=== PATIENT | female | born 1950 | race Caucasian/White ===

== ENCOUNTER 2016-08-22 05:44 | Inpatient (IN) | payer OTHER ==
--- NOTE | 2016-08-20 09:19 | GHP ---
[f rep st] PREOP HISTORY AND PHYSICAL DATE OF ADMISSION: 08/22/2016 PROBLEM: Severe right hip degenerative arthritis. HISTORY OF PRESENT ILLNESS: The patient is a 65-year-old female, who will be admitted for a right to zulma hip arthroplasty with Dr. Gonzales at the [facility] on August 22, 2016. The mirian ent has had progressive and worsening debilitating pain of the right hip and groin, which is worse wi th activity. She has had to stop playing tennis secondary to her hip pain. Her activities have beco me severely limited. She has pain both during the day and nighttime. She has tried and failed anti- inflammatories and other pain medications without relief. She has difficulty putting on her shoes an d socks on the right side. Because of her progressive pain and advanced arthritis, she has elected t o proceed with a right total hip arthroplasty. PAST MEDICAL HISTORY: Pertinent for bilateral knee patellofemoral arthritis, generalized body aches. No previous history of PE, DVT, MT, CAD, or MRSA infections. CURRENT MEDICATIONS: Amitriptyline 100 mg daily, Aleve, tumeric, omega-3, Co Q10 enzyme, D3 and calc ium. MEDICATION ALLERGIES: She has a drug allergy to sulfa with an unknown reaction. No metal allergies SOCIAL HISTORY: The patient is . She is retired. She is a nonsmoker. Moderate alcohol inta ke. Her activities include golf, tennis, Pilates, cycling and hiking. FAMILY HISTORY: Pertinent for cancer and dementia. PAST SURGICAL HISTORY: Spinal fusion in 1989. PHYSICAL EXAMINATION: VITALS: Height 5 feet 5 inches tall, weight 142 pounds. BMI 23.6. GENERAL: She is an otherwise healthy-appearing 65-year-old female. HEENT: Head is normocephalic, atraumatic . Eyes are PERRLA. Conjunctivae and sclerae are clear. Mouth, she has good oral hygiene without an y loose teeth. LUNGS: Clear. HEART: Regular rate and rhythm. No murmurs, gallops, or rubs. EXTR EMITIES: Pertinent findings are limited to the patient's right hip. She has full hip extension, 90 degrees of hip flexion with pain beyond 90 degrees. She has about 10 degrees of internal rotation wi th pain, 40 degrees of external rotation without pain and 50 degrees of abduction. DIAGNOSTIC IMAGING: Recent x-rays taken on the patient's right hip shows advanced, near hsih-di-kwht degenerative arthritis of the right hip. She has increased subchondral sclerosis, peripheral osteop hyte formation, and a few subcortical cysts of the femoral head. She did not have any significant de generative changes of the left hip. IMPRESSION: On admission: 1. Severe advanced right hip degenerative arthritis. 2. Bilateral knee patellofemoral arthritis. PLAN: The plan will be for the patient to undergo a right total hip arthroplasty with Dr. Gonzales at the [facility]. The surgery has been described to the patient including the risks, b enefits and expectations. She understands the risk of infection, sciatic nerve injury, dislocation a nd leg length inequality. She understands the importance of postoperative physical therapy. All her questions have been answered and she consents to surgery here in the office. /[id number]/MODL
[2016-08-22] MEDS ORDERED: ACETAMINOPHEN 325 MG TAB ONE (06:04)
[2016-08-22] MEDS ORDERED: FAMOTIDINE 20 MG TAB ONE (06:05)
[2016-08-22] MEDS ORDERED: CEFAZOLIN 2 GM/DEXTROSE/100 ML BAG IV ONE (06:06)
[2016-08-22] MEDS ORDERED: DEXAMETHASONE 4 MG/ML VIAL ONE ×2 (06:11→08:00)
[2016-08-22] MEDS ORDERED: LIDOCAINE 1% 5 ML SDV ID PRN (06:12)
[2016-08-22] MEDS ORDERED: LR 1,000 ML IV ONE (06:12)
[2016-08-22] MEDS ORDERED: TRANEXAMIC ACID 1,400 MG in NS 100 ML IV ONE (06:30)
[2016-08-22] MEDS ORDERED: ROPI/epiNEPH/KETOROLAC JOINT COCKTAIL IU ONE (06:30)
[2016-08-22] MEDS ORDERED: CEFAZOLIN 2 GM/DEXTR 100 ML IV ONE (06:30)
[2016-08-22] MEDS ORDERED: DEXAMETHASONE 4 MG/ML VIAL IVP ONE (06:30)
[2016-08-22] MEDS ORDERED: ACETAMINOPHEN 325 MG TAB PO ONE (06:30)
[2016-08-22] MEDS ORDERED: FAMOTIDINE 20 MG TAB PO ONE (06:30)
[2016-08-22] MEDS ORDERED: POVIDONE-IODINE 20 ML in SODIUM CL IRRIG SOLUTION 500 ML IRR ONE (06:30)
[2016-08-22] MEDS ORDERED: CHLORHEXIDINE GLUC HIBICLENS 118 ML BTL TP ONE (06:30)
[2016-08-22] MEDS ORDERED: MIDAZOLAM 2 MG/2 ML VIAL ONE (07:00)
[2016-08-22] MEDS ORDERED: SKIN ADHESIVE (DERMABOND) 1 EACH TP ONE (07:09)
[2016-08-22] MEDS ORDERED: ceFAZolin 1 GM/5 ML SYR ONE (07:11)
[2016-08-22] MEDS ORDERED: fentaNYL 100 MCG/2 ML INJ ONE ×4 (07:12→09:19)
[2016-08-22] MEDS ORDERED: PROPOFOL/EMULSION 500 MG/50 ML BOTTLE IV ONE (07:13)
[2016-08-22] MEDS ORDERED: PROPOFOL 200 MG/20 ML VIAL ONE ×2 (07:56→07:59)
[2016-08-22] MEDS ORDERED: GLYCOPYRROLATE 0.2 MG/1 ML VIAL ONE (08:00)
[2016-08-22] MEDS ORDERED: ROCURONIUM 50 MG/5 ML VIAL ONE (08:00)
[2016-08-22] MEDS ORDERED: ONDANSETRON 4 MG/2 ML VIAL ONE (08:02)
[2016-08-22] MEDS ORDERED: SUGAMMADEX SODIUM 200 MG/2 ML VIAL IVP ONE (08:48)
--- NOTE | 2016-08-22 09:00 | POSTOPPROG ---
Post Op Note Date of Operation: 08/22/16 Surgeon: Emmanuel Gonzales Sound Engineer: Carlo/Julio Anesthesiologist: Dago Anesthesia: GET(General Endotracheal) Post-op Diagnosis: right hip arthritis Procedure: right AKILAH Inf/Abcess present in the surg proc area at time of surgery?: No EBL: [id number]
[2016-08-22] MEDS ORDERED: NS 500 ML IV PRN (09:06)
[2016-08-22] MEDS ORDERED: METOCLOPRAMIDE 10 MG/2 ML VIAL IVP PRN (09:06)
[2016-08-22] MEDS ORDERED: oxyCODONE IR 5 MG TAB PO PRN (09:06)
[2016-08-22] MEDS ORDERED: PROMETHAZINE HCL 25 MG SUPPR PR PRN (09:06)
[2016-08-22] MEDS ORDERED: CYCLOBENZAPRINE 10 MG TAB PO PRN (09:06)
[2016-08-22] MEDS ORDERED: ONDANSETRON 4 MG/2 ML VIAL IVP PRN (09:06)
[2016-08-22] MEDS ORDERED: KETOROLAC 30 MG/1 ML SDV IVP PRN (09:06)
[2016-08-22] MEDS ORDERED: MAGNESIUM HYDROXIDE 30 ML UDCUP PO PRN (09:06)
[2016-08-22] MEDS ORDERED: PROMETHAZINE HCL 25 MG/ML VIAL IVP PRN (09:06)
[2016-08-22] MEDS ORDERED: ONDANSETRON DISINTEGRATING 4 MG TAB PO PRN (09:06)
[2016-08-22] MEDS ORDERED: BISACODYL 10 MG SUPP PR PRN (09:06)
[2016-08-22] MEDS ORDERED: TEMAZEPAM 15 MG CAP PO PRN (09:06)
[2016-08-22] MEDS ORDERED: DIPHENOXYLATE/ATROPINE LOMOTIL 1 TAB PO PRN (09:06)
[2016-08-22] MEDS ORDERED: diphenhydrAMINE 25 MG CAP PO PRN (09:06)
[2016-08-22] MEDS ORDERED: POLYETHYLENE GLYCOL 3350 17 GM PKT PO PRN (09:06)
[2016-08-22] MEDS ORDERED: PHARMACY PAIN CONSULT 1 EA MISC PRN (09:06)
[2016-08-22] MEDS ORDERED: LACTULOSE 20 GM/30 ML UDCUP PO PRN (09:06)
[2016-08-22] MEDS ORDERED: HYDROmorphONE/DILAUDID 1 MG/ML SYR ONE (09:19)
--- NOTE | 2016-08-22 09:34 | DX ---
Portable AP Pelvis August 22, 2016 9:25 a.m. Clinical History: 65-year-old female in the PACU after a right hip arthroplasty. Comparison Study: None. Findings: The patient has undergone a right hip arthroplasty, with anatomic alignment of the femoral and acetabular components. The femoral intramedullary cyndi is well-centered. There is normally expecte d postoperative air in the soft tissues. The more cephalad aspects of the pelvis have been excluded. Impression: Status post right hip arthroplasty, with anatomic alignment.
[2016-08-22] MEDS: LR 1,000 ML IV SCH ×2 (10:47→20:52)
--- NOTE | 2016-08-22 11:27 | GOP ---
[f rep st] OPERATIVE REPORT DATE OF OPERATION: 08/22/2016 SURGEON: Emmanuel Gonzales MD MARINE MACHINIST: 1. Stephen Matos PAC. 2. Alfredo Kim TEACHER AIDE CLERICAL. ANESTHESIA: General. ANESTHESIOLOGIST: Maren Loza MD. PREOPERATIVE DIAGNOSIS: 1. Right hip arthritis. 2. Bilateral knee degenerative arthritis. POSTOPERATIVE DIAGNOSIS: PROCEDURE PERFORMED: 1. Right total hip arthroplasty, ceramic on highly crosslink polyethylene. 2. Bilateral knee Supartz injections. FINDINGS: DESCRIPTION OF PROCEDURE: The patient was given 2 g of preoperative IV Ancef within 60 minutes of scruggs rgery. She also received IV tranexamic acid at a dose of 20 mg/kg. She was placed on the operating room table and Dr. Loza attempted a spinal anesthetic. This was unsuccessful. She was then placed supine and given general endotracheal anesthesia. When she was anesthetized, I gave her bilateral k nee Supartz injections after sterilely prepping her knees with ChloraPrep. A Valentin catheter was not used. She wore a MAICO stocking and SCD on the nonoperative leg. She was rolled to the left lateral d ecubitus position. The position was secured with the pegboard table attachment. An axillary roll wa s used and all pressure points were carefully padded. I was careful to lock her pelvis in a rigid ve rtical position. Her perineum was isolated with plastic adhesive drapes. Her right hip and right lo wer extremity were prepped with ChloraPrep. They were draped free using sterile sheets, stockinette, and Ioban plastic drapes. The [employer] time-out was performed to verify the correct surgical side and the maggy [facility] patient identity. The [place] time-out was also performed. I made a 5-inch straight oblique posterolateral hip skin incision. Subcutaneous tissues were sharply divided and hemostasis was obtained using electrocautery. Her fascia ant was identified and split along the axis of its fibers. I curved posteriorly and proximally and split the fascia of the gluteu s maggy and bluntly split the muscle fibers in line with their orientation. The Charnley self-vilma ining retractor was inserted. Her sciatic nerve was located, partially exposed and protected through out the procedure. The external rotators and the posterior hip capsule were divided as separate laye rs at the base of the femoral neck, tagged and reflected posteriorly. A smooth eighth-inch Steinmann pin was inserted vertically into the ilium superior to the acetabulum. An eighth-inch drill bit was inserted vertically into the greater trochanter and parallel to the 1st pin. The distance between t he 2 was measured for leg length reference. Her femoral head was dislocated posteriorly. She had a lot of hypertrophic synovium in the joint and an excessive amount of synovial fluid. Severe degenera tive changes were present on the femoral head. Her femoral neck was osteotomized at the appropriate level and inclination. I was careful to preserve all the posterior capsule and most of the anterior capsule. The remnant of her damaged labrum was excised. I prepared the femur first. This allowed me to internal security manager the amount of natural femoral neck anteversion. This, in turn, allowed me to later determine the correct amount of cup anteversion. She had approx imately 12-15 degrees of natural femoral neck anteversion. The canal was opened laterally with a box chisel. I reamed and broached sequentially up to a size 9. I used a size 9 broach as a trial stem. I was careful to lateralize adequately. Appropriate retractors were inserted to expose her acetabulum. The acetabulum was reamed sequentiall y to 51 mm. I selected a 52 mm Davis Titanium solid-backed hemispherical shell. This was tapped s ecurely into place in the proper degree of inclination and anteversion. I used the transverse acetab ular ligament and other acetabular bony landmarks to help me properly orient the cup. I inserted a s crew-in metal dome hole plug. She had a small posterior-inferior osteophyte which I removed with a r ongeur. I performed a series of trial reductions to determine length and stability. I concluded that the siz e 9 stem with a 0 mm neck length, a 32 mm head and a 10-degree lipped liner gave me the proper combin ation of appropriate length and good anterior and posterior stability. The 10-degree lip Davis highly cross-linked X3 polyethylene liner was inserted and tapped securely into place. I dialed the 10-degree overhang so that it was directly posterior. I chose the Davis Secur-Fit Max stem and a size 9 with standard offset. This was inserted to press-fit and was very ti ght. I did 1 final trial reduction and confirmed that the 0 neck length with a 32 mm head was the pr oper combination. She was a couple of millimeters short preoperatively, and I was intentionally mireya thening her a small amount. I selected the Charo Biolox Delta ceramic head with an outside diamete r of 32 mm and a neck length of 0 mm. The head was tapped securely onto the clean trunnion. The coral tabulum was irrigated and cleaned and the hip was reduced 1 final time. She had excellent anterior a nd posterior stability and appropriate lengthening. 40 mL of the joint anesthetic cocktail were injected into the capsule, the deep musculature and the s ubcutaneous tissues along the skin edges. The joint was thoroughly irrigated 1 final time with a dil [place] Betadine solution. Her sciatic nerve was reinspected and looked unharmed. The external rotators and the posterior hip capsule were repaired in separate layers with #2 FiberWire sutures through dri ll holes in the greater trochanter. This provided a strong posterior capsular and external rotator r epair. The fascia ant was closed first with 2, #2 brvjeu-zr-nhwst interrupted FiberWire sutures, fo llowed by a running #2 barbed Ethicon Stratafix PDO suture. Subcutaneous tissues were closed with a running 0 barbed Ethicon Stratafix Monoderm suture. The skin was closed with a running 3-0 barbed Et hicon Stratafix Monoderm subcuticular suture. The skin edges were reapproximated and sealed with Jamari mabond glue. The wound was covered with a strip of Telfa, and everything was held in place with a pi gill of clear plastic Tegaderm. A long-leg MAICO stocking and SCD were applied to her right lower extremity. She wore a stocking and S CD on the opposite leg during the procedure. An abduction pillow was placed between her knees. She was awakened from anesthesia and rolled to the supine position on her [facility]. She was taken to PACU in satisfactory condition. There were no recognized intraoperative complications. The cheko mated blood loss was about 400 mL. The sponge and needle count were correct on 2 occasions. I used a Charo Titanium hemispherical solid-backed acetabular shell with an outside diameter of 52 mm. The liner was a Davis X3, 10-degree lipped highly crosslink liner with an inside diameter of 3 2 mm. The femoral component was a Davis standard offset Secur-Fit Max stem and a size 9. The femo ral head was a Charo Biolox Delta ceramic head with a 0 neck length and a 32 mm outside diameter. Marshall Matos and Alfredo Kim acted as surgical assistants. Their assistance was a medical necess ity. /[id number]/MODL
[2016-08-22] MEDS: ACETAMINOPHEN 325 MG TAB PO SCH ×2 (12:58→18:07)
[2016-08-22] MEDS: TRANEXAMIC ACID 650 MG TAB PO SCH ×3 (12:58→20:52)
[2016-08-22] MEDS: ceFAZolin 2 GM/DEXTROSE 100 ML IV SCH ×2 (12:59→20:52)
[2016-08-22] MEDS: ASPIRIN 325 MG TAB PO SCH (20:52)
[2016-08-22] MEDS: MAGNESIUM OXIDE 400 MG TAB PO SCH (20:52)
[2016-08-22] MEDS: SENNOSIDES/DOCUSATE SODIUM TAB PO SCH (20:52)
[2016-08-22] MEDS: FAMOTIDINE 20 MG TAB PO SCH (20:52)
[2016-08-22] MEDS ORDERED: [UNRECOGNIZED DRUG - OTHER] PO SCH (21:00)
[2016-08-22] MEDS ORDERED: AMITRIPTYLINE HCL 50 MG TAB PO SCH (21:00)
[2016-08-22] MEDS ORDERED: [UNRECOGNIZED DRUG - OTHER] VG SCH (21:00)
[2016-08-23] MEDS: ACETAMINOPHEN 325 MG TAB PO SCH ×2 (00:06→05:57)
[2016-08-23 00:10] VITALS: RESP 16
[2016-08-23 03:59] VITALS: PULSE 83
[2016-08-23 05:54] LABS: HEMATOCRIT 35.1 % (38.0-47.0); HEMOGLOBIN 12.1 g/dL (12.6-16.3)
--- NOTE | 2016-08-23 07:32 | SOAPPROG ---
SOAP Progress Note Assessment/Plan: Assessment: Afebrile. Very little pain. Dsg is dry. H/H is good. Sciatic nerve intact. Films look good. Plan: Up with PT. MAU later today. 08/23/16 07:30 Objective: Vital Signs Temp Pulse Resp BP Pulse Ox 36.6 C 83 16 109/66 93 08/23/16 03:58 08/23/16 03:58 08/23/16 03:58 08/23/16 03:58 08/23/16 03:58 Laboratory Results 08/23/16 04:59 08/22/16 08/23/16 08/24/16 05:59 05:59 05:59 Intake Total 3055 Output Total 1700 Balance 1355 ICD10 Worksheet Patient Problems: Problems Problem Status Diagnosed Osteoarthritis of right hip Acute
[2016-08-23 07:35] VITALS: BP 109/58; TEMP 98.6; O2SAT 92
[2016-08-23] MEDS: ASPIRIN 325 MG TAB PO SCH (08:57)
[2016-08-23] MEDS: FAMOTIDINE 20 MG TAB PO SCH (08:58)
[2016-08-23] MEDS: MAGNESIUM OXIDE 400 MG TAB PO SCH (08:58)
[2016-08-23] MEDS ORDERED: Herbals/Supplements -Info Only PO SCH (09:00)
[2016-08-23] MEDS ORDERED: CHOLECALCIFEROL VIT D3 2,000 UNITS TAB/CAP PO SCH (09:00)
[2016-08-23] MEDS: TRANEXAMIC ACID 650 MG TAB PO SCH (09:00)
[2016-08-23] MEDS ORDERED: FERROUS SULFATE 140 MG TAB.ER PO SCH (09:00)
[2016-08-23] MEDS ORDERED: CYANO/VITAMIN B12 1000 MCG TAB PO SCH (09:00)
[2016-08-23] MEDS ORDERED: VITAMIN B COMPLEX 1 EA CAP/TAB PO SCH (09:00)
[2016-08-23] MEDS: SENNOSIDES/DOCUSATE SODIUM TAB PO SCH (09:01)
--- NOTE | 2016-08-23 09:45 | GDS ---
[f rep st] DISCHARGE SUMMARY ADMISSION DIAGNOSIS: Right hip severe degenerative arthritis. DISCHARGE DIAGNOSIS: Right hip severe degenerative arthritis OPERATION PERFORMED: Right total hip arthroplasty, 08/22/2016. POSTOPERATIVE COMPLICATIONS: None. CONDITION ON DISCHARGE: Improved. DESCRIPTION OF HOSPITAL COURSE: The patient was admitted to the hospital on the morning of surgery. Her admission CBC was normal. The same day, under general anesthesia, she underwent a right total h ip arthroplasty. Postoperatively, she was treated with multimodal DVT prophylaxis, including aspirin . On the 1st postoperative day, her hemoglobin and hematocrit were 12.1 and 35.1. [facility] and made excellent progress with ambulation and stairs. By the time of discharge, tanya reyes was afebrile, her wound was clean and dry, and she was independent walking with a walker. DISPOSITION: The patient is discharged to her home. She will go to outpatient physical therapy. Tanya reyes may progress to full weightbearing on the right as tolerated. Use an abduction pillow in bed for 3 weeks. Use MAICO stockings for 1 week. Continue aspirin 325 mg p.o. daily for 21 days. She may use oxycodone for pain control. I will see her back in the office on 09/13/2016. If there are any probl ems, she is to call me at the office. /[id number]/MODL
--- NOTE | 2016-08-23 16:52 | PDIAF ---
- Diagnosis Diagnosis: right hip arthritis Code Status: Full Code - Medication Management Discharge Medications: Medications to Continue on Transfer Amitriptyline HCl [Elavil 50 mg (*)] 50 mg PO HS 07/26/16 [Last Taken 08/21/16 22:30] Cholecalciferol Vit D3 [Vitamin D3 2000 units tab (OTC)] 2,000 units PO DAILY [Last Taken 08/14/16] Compounded Estradiol Crm 1 eric VG HS 07/26/16 [Last Taken 08/21/16 22:30] Compounded Progesterone Tab 1 each PO HS 07/26/16 [Last Taken 08/21/16 22:30] Cyanocobalamin [Vitamin B12 (*)] 1,000 mcg PO DAILY 07/26/16 [Last Taken ] Herbals/Supplements -Info Only 1 ea PO DAILY 07/26/16 [Last Taken 08/14/16] Magnesium Oxide [Magnesium Oxide 400 mg (*)] 200 mg PO BID 07/26/16 [Last Taken 08/14/16] Naproxen Sodium [Aleve 220 MG (*)] 220 mg PO DAILY 07/26/16 [Last Taken 08/14/16 ] Vitamin B Complex [B Complex] 1 each PO DAILY 07/26/16 [Last Taken 08/14/16] Acetaminophen [Tylenol 325mg (*)] 650 mg PO Q6HRS #0 tab 08/23/16 [Last Taken Unknown] Aspirin [Aspirin 325 mg (*)] 325 mg PO DAILY #21 tab 08/23/16 [Last Taken Unknown] Ferrous Sulfate [Slow Fe 140 MG (*)] 140 mg PO DAILY #30 tab.er 08/23/16 [Last Taken Unknown] Ondansetron Odt [Zofran Odt 4 mg (*)] 4 mg PO Q4HRS PRN #0 tab 08/23/16 [Last Taken Unknown] oxyCODONE IR [Oxycodone Ir (*)] 5 - 10 mg PO Q3HRS PRN #0 tab 08/23/16 [Last Taken Unknown] Discharge Medications: Refer to the Discharge Home Medication list for PRN reason. PICC Care - Routine: N/A - Orders Services needed: Home Care, Physical Therapy Home Care Face to Face: I certify that this patient was under my care and that I had the required [id number] encounter meeting the encounter requirements on the discharge day. My findings support the fact that the patient is homebound as defined in CMS Chapter 7 Medicare Benefits Manual 30.1.1, The condition of the patient is such that there exists a normal inability to leave home and consequently, leaving home would require a considerable and taxing effort. Diet Recommendation: no restrictions on diet Diet Texture: Regular Texture Diet Valentin: Not applicable Sohail Stockings Discontinue Date: 1 week Wound Care Instructions: keep clean and dry. Activity/Weight Bearing Restrictions: as tolerated. - Follow Up Care Current Providers and Referrals: Emmanuel Gonzales MD [Medical Doctor] - 09/13/16 1:00 pm Clinton Avitia MD [Primary Care Provider] -
== END 2016-08-23 11:18 | disposition home health service (06) | DRG 470 ==
LOC: F3N 05:44
PROVIDERS: ADMIT Orthopaedic Surgery; ATTEND Orthopaedic Surgery
PROC: 0SR904A Replacement of Right Hip Joint with Ceramic on Polyethylene Synthetic Substitute, Uncemented, Open Approach (ICD-10-PCS; principal; 2016-08-22 07:15)
PROC: 3E0U3GC Introduction of Other Therapeutic Substance into Joints, Percutaneous Approach (ICD-10-PCS; principal; 2016-08-22 07:15)
DX: M16.11 Unilateral primary osteoarthritis, right hip (principal); M17.11 Unilateral primary osteoarthritis, right knee; M17.12 Unilateral primary osteoarthritis, left knee; Z98.1 Arthrodesis status
CPT/HCPCS: 97116-GP; 97161-GP; 97165-GO; G8978-GP-CJ; G8979-GP-CI; G8980-GP-CI; G8984-GO-CI; G8985-GO-CI; G8986-GO-CI; J0171; J0690; J1100; J1170; J1885; J2250; J2405; J2704; J2795; J3010

== ENCOUNTER → 2017-01-14 | Outpatient (CLI) | payer OTHER | LOC: FIMAGING 15:16 | DX: Z12.31 Encounter for screening mammogram for malignant neoplasm of breast (principal) | CPT/HCPCS: G0202 ==

== ENCOUNTER → 2018-01-16 | Outpatient (CLI) | payer OTHER | LOC: FIMAGING 07:51 | PROVIDERS: ATTEND Obstetrics & Gynecology | DX: Z12.31 Encounter for screening mammogram for malignant neoplasm of breast (principal) ==

== ENCOUNTER → 2018-01-23 | Outpatient (CLI) | payer OTHER | LOC: FIMAGING 07:11 | PROVIDERS: ATTEND Obstetrics & Gynecology | DX: D25.0 Submucous leiomyoma of uterus (principal) ==

== ENCOUNTER → 2019-01-19 | Outpatient (CLI) | payer OTHER | LOC: FIMAGING 07:48 ==